=== PATIENT | female | born 1980 | race Caucasian/White ===

== ENCOUNTER 2016-07-22 10:38 | Emergency (ER) | payer SELFPAY ==
[~2016-07-22] VITALS: Ht 157.5 cm; Wt 104.0 kg
[2016-07-22 10:40] VITALS: BP 147/91; PULSE 82; RESP 16; TEMP 98.2; O2SAT 98
[2016-07-22] MEDS ORDERED: TRAM50TA PO (12:06)
--- NOTE | 2016-07-22 12:10 | PD ---
HPI Chief Complaint: Complaint Time Seen by Provider: 10:51 Travel History International Travel<30 days: No Contact w/Intl Traveler<30days: No Traveled to known affect area: No History of Present Illness HPI The patient was seen and examined in the presence of the nurse. This patient has history of bladder prolapse and has been point with her physician tomorrow to discuss. She is here vacationing from . She complains of left as well as some vaginal bleeding. She's had a hysterectomy and has no cervix or uterus. Symptoms severity is mild to moderate. 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 Positive bowel sounds. No hepato-splenomegaly, or palpable masses. No guarding. SKIN: Inspection shows no rash or ulcers. Palpation shows no induration or nodules. : I declined a speculum exam but there is a lot of apparent yeast infection of the vulva. They are erythematous and irritated and raw looking and she is going to have lots of pain with this. Initial attempt was unsuccessful. I'm going to hold off on that due to the fact she has no cervix or uterus in any event. There is no prolapse out of the body. Her bladder is appearing somewhat low in position. Data Data Last Documented VS Vital Signs Date Time Temp Pulse Resp B/P Pulse Ox O2 Delivery O2 Flow Rate FiO2 07/22/16 10:40 98.2 82 16 147/91 98 MDM Medical Decision Making Medical Screen Exam Complete: Yes Emergency Medical Condition: Yes Medical Record Reviewed: Yes Differential Diagnosis Prolapse, yEast infection, pelvic pain Narrative Course I have reviewed the patient's electronic medical record. Never been here before , she is on vacation Recommended she discuss prolapse with her physician tomorrow as scheduled Is nothing exposed out of the body. She should get some Monistat and I wrote her some tramadol for pain relief Diagnosis Primary Impression: Bladder prolapse, female, acquired Additional Impression: Yeast infection involving the vagina and surrounding area Additional Instructions: The patient was advised to follow up with their physician and return if they worsen. The patient was warned about potential sedation for the medications they will receive on prescription. Obtain seven-day Monistat which is [id number] Med/Other Pt SpecificInfo: Prescription(s) given Scripts Tramadol 50 Mg Tab50 Mg PO Q6H PRN (PAIN) #20 TAB Ref 0 Prov:Thiago Jean MD 07/22/16 Disposition: 01 DISCHARGE HOME Condition: Stable Thiago Jean MD Jul 22, 2016 12:10
== END 2016-07-22 13:11 | disposition home or self-care (01) ==
LOC: NEPE 10:38
DX: N81.10 Cystocele, unspecified (principal); B37.3 Candidiasis of vulva and vagina
CPT/HCPCS: 99283